=== PATIENT | male | born 1970 ===

== ENCOUNTER 2017-01-02 11:45 | Emergency (ER) | payer MEDICAID ==
--- NOTE | 2017-01-02 14:22 | ED PDOC ---
Lower Extremity Pain/Injury Time Seen by Provider: 01/02/17 12:02 Chief Complaint (Nursing): Lower Extremity Problem/Injury History Per: Patient (Bilat lower ext pain assoc with SOB. Pt has h/o DVT and PE on Coumadin. Denies chest pain or cough.) Onset/Duration Of Symptoms: Days (2) Current Symptoms Are (Timing): Still Present Severity: Mild Pain Scale Rating Of: 2 - Risk Factors DVT Risk Factors: Pos: History Of DVT, History Of PE Past Medical History Vital Signs: Last Vital Signs Temp 97 F L 01/02/17 11:58 Pulse 81 01/02/17 11:58 Resp 18 01/02/17 11:58 BP 137/3 L 01/02/17 11:58 Pulse Ox 98 01/02/17 11:58 - Medical History PMH: Deep Vein Thrombosis (On Coumadin), Pulmonary Embolism (On Coumadin) - Family History Family History: States: Unknown Family Hx - Home Medications Home Medications: Ambulatory Orders Medication Instructions Recorded Baclofen [Lioresal] 10 mg PO HS 02/05/16 Methadone [Methadone HCl] 35 mg PO DAILY 02/05/16 Naproxen [Naprosyn] 500 mg PO BID PRN #14 tablet 02/05/16 Omeprazole 40 mg PO DAILY 02/05/16 Ondansetron ODT [Zofran ODT] 4 mg PO Q8 PRN #20 odt 02/05/16 Warfarin [Coumadin] 10 mg PO 1800 02/05/16 - Allergies Allergies/Adverse Reactions: Allergies Allergy/AdvReac Type Severity Reaction Status Date / Time No Known Allergies Allergy Verified 01/02/17 11:58 Review of Systems ROS Statement: Except As Marked, All Systems Reviewed And Found Negative Respiratory: Positive for: Shortness of Breath Musculoskeletal: Positive for: Leg Pain Physical Exam - Reviewed Nursing Documentation Reviewed: Yes Vital Signs Reviewed: Yes - Physical Exam Appears: Positive for: Non-toxic, No Acute Distress Head Exam: Positive for: ATRAUMATIC, NORMAL INSPECTION, NORMOCEPHALIC Skin: Positive for: Normal Color, Warm, DRY Eye Exam: Positive for: EOMI, Normal appearance, PERRL ENT: Positive for: Normal ENT Inspection Neck: Positive for: Normal, Painless ROM Cardiovascular/Chest: Positive for: Regular Rate, Rhythm Respiratory: Positive for: CNT, Normal Breath Sounds Gastrointestinal/Abdominal: Positive for: Normal Exam, Bowel Sounds, Soft Back: Positive for: Normal Inspection Extremity: Positive for: Normal ROM, Calf Tenderness (Bilat R>L) Neurologic/Psych: Positive for: Alert, Oriented - Laboratory Results Result Diagrams: 01/02/17 14:28 01/02/17 14:28 - ECG O2 Sat by Pulse Oximetry: 98 Disposition - Clinical Impression Clinical Impression: Chronic deep vein thrombosis (DVT) of both lower extremities - Patient ED Disposition Is Patient to be Admitted: Transfer of Care - Disposition Referrals: mE Salgado MD [Family Provider] - Disposition: Routine/Home Disposition Time: 17:00 Condition: FAIR Patient Signed Over To: Elvira Hernandez
--- NOTE | 2017-01-02 15:04 | RAD ---
HISTORY: sob COMPARISON: Chest x-ray performed 03/19/15 TECHNIQUE: Chest PA and lateral FINDINGS: Examination limited by habitus. LUNGS: Minimal interstitial prominence and peribronchiolar cuffing centrally. No focal consolidation. Please note that chest x-ray has limited sensitivity for the detection of pulmonary masses. PLEURA: No significant pleural effusion identified. No definite pneumothorax . CARDIOVASCULAR: The cardiomediastinal silhouette appears within normal limits of size. OSSEOUS STRUCTURES: Curvature of the lumbar spine convex to the right. Degenerative changes of the spine. VISUALIZED UPPER ABDOMEN: Unremarkable. OTHER FINDINGS: None. IMPRESSION: Findings consistent with mild reactive or inflammatory airway disease.
--- NOTE | 2017-01-02 15:49 | US ---
Bilateral lower extremity ultrasound. Indication: Rule out DVT Technique: Duplex ultrasound evaluation of the bilateral lower extremities Comparison: Bilateral lower extremity ultrasound performed 03/19/15 Findings: Bilateral chronic nonocclusive thrombus evident within bilateral popliteal veins. No thrombus within the bilateral common femoral or femoral veins. The posterior tibial veins appear patent bilaterally. Impression: Bilateral nonocclusive chronic appearing thrombus within bilateral popliteal veins.
[2017-01-02 16:02] LABS: BASO # 0.1 K/uL (0.0-0.2); BASO % 0.6 % (0.0-2.0); EOS # 0.1 K/uL (0.0-0.7); EOS % 1.1 % (0.0-4.0); HEMATOCRIT 36.5 % (35.0-51.0); LYMPH # 2.2 K/uL (1.0-4.3); LYMPH % 25.4 % (20.0-40.0); MEAN CELL VOLUME 89.7 fl (80.0-94.0); MEAN CORPUSCULAR HEMOGLOBIN 30.6 pg (27.0-31.0); MEAN CORPUSCULAR HGB CONC 34.1 g/dL (33.0-37.0); MEAN PLATELET VOLUME 8.4 fl (7.2-11.7); MONO # 0.6 K/uL (0.0-0.8); MONO % 7.4 % (0.0-10.0); NEUT # 5.6 K/uL (1.8-7.0); NEUT % 65.5 % (50.0-75.0); NRBC % 0.1 % (0.0-0.0); RED CELL DISTRIBUTION WIDTH 13.5 % (11.5-14.5); WHITE BLOOD COUNT 8.5 K/uL (4.8-10.8)
[2017-01-02 16:13] LABS: ALB/GLOB RATIO 1.2 (1.0-2.1); ALKALINE PHOSPHATASE 68 U/L (38-126); ALT/SGPT 27 U/L (21-72); AST/SGOT 25 U/L (17-59); BILIRUBIN,TOTAL 0.5 mg/dl (0.2-1.3); BLOOD UREA NITROGEN 13 mg/dl (9-20); CARBON DIOXIDE 27 mmol/L (22-30); CHLORIDE 104 mmol/L (98-107); GFR AFRICAN-AMERICAN > 60; GLUCOSE,RANDOM 83 mg/dL (75-110); POTASSIUM 4.4 MMOL/L (3.6-5.0); SODIUM 143 mmol/l (132-148); TOTAL PROTEIN 7.3 G/DL (6.3-8.2)
[2017-01-02 16:43] VITALS: BP 125/87; PULSE 56; RESP 16; TEMP 98.3
[2017-01-02] MEDS ORDERED: Iodixanol 320 MG/ML 100 ML BOTTLE IV ONE (16:44)
[2017-01-02] MEDS ORDERED: Sodium Chloride 0.9% 50 ML IV ONE (16:44)
--- NOTE | 2017-01-02 17:42 | ED PDOC ---
- Laboratory Results Result Diagrams: 01/02/17 14:28 01/02/17 14:28 - ECG O2 Sat by Pulse Oximetry: 97 (RA) Pulse Ox Interpretation: Normal Medical Decision Making Medical Decision Makin01/02/17 17:41 Pt signed out by Dr. Gutierrez pending CT. 1929 Pt INR subtherapeutic. Pt states he discontinued Coumadin (10 mg) on 12/26/16 for dental procedure scheduled for 01/06/17 and was planning on restarting immediately afterwards. 1951 case was discussed with Dr. Salgado who states patient should be admitted. 1952 Case discussed with patient, explained Dr. Salgado would like to admit him however patient states he does not wish to stay in the hospital because he needs to go to work. I explained that patient has chronic findings, subtherapeutic INR and shortness of breath. Strongly recommended admission. Explained risks of leaving against medical advice, including injury or . Patient still wishes to leave. Patient instructed to follow up with Dr. Salgado tomorrow. Return for worsening of symptoms or as soon as possible. Disposition - Clinical Impression Clinical Impression: Chronic deep vein thrombosis (DVT) of both lower extremities - POA Present On Arrival: None - Disposition Referrals: Em Salgado MD [Family Provider] - Disposition: AGAINST MEDICAL ADVICE Disposition Time: 19:55 Condition: FAIR Additional Comments - Additional Comments Additional Comments: Scribe Attestation: Documented by Connor Tavera acting as a scribe for Judie Hernandez MD. Scribe Attestation: All medical record entries made by the Scribe were at my direction and personally dictated by me. I have reviewed the chart and agree that the record accurately reflects my personal performance of the history, physical exam, medical decision making, and the department course for this patient. I have also personally directed, reviewed, and agree with the discharge instructions and disposition. Against Medical Advice - AMA Patient Left Against Medical Advice: The patient declines admission to the hospital and wishes to leave the Emergency Department. This action is against my medical advice. This decision was made with informed refusal. The patient was told that admission to the hospital is necessary. Explanation of the reasons why were discussed. The risks of leaving were explained to the patient and include, but are not limited to, worsening of known or currently unknown conditions, permanent disability and from undiagnosed or untreated conditions. The patient has the capacity to make this informed decision and understands my explanation of the current medical problem and risks of leaving. The patient voluntarily accepts these risks and signed an AMA form documenting our conversation. The patient was given the opportunity to ask questions and reconsider. The patient was encouraged to return to the Emergency Department at any time for further care.
--- NOTE | 2017-01-02 17:48 | CT ---
CT chest with IV contrast Indication: Rule out PE, shortness of breath Technique: Contiguous axial images were obtained through the chest with intravenous contrast enhancement. Sagittal and coronal reconstructions were generated and reviewed. This CT exam was performed using 1 or more of the falling dose reduction techniques: Automated exposure control, adjustment of the MAA and/or kV according to patient size, and/or use of iterative reconstruction technique. IV Contrast: 95 mL Visipaque Radiation dose (DLP): 347.84 MGy-cm. Comparison: Chest x-ray performed 01/02/17 Findings: Visualized portions of the inferior thyroid gland appear unremarkable. The mediastinal and hilar vascular structures appear within normal limits. The heart appears within normal limits of size. No large central or segmental pulmonary embolus evident. No focal consolidation. No pleural effusion. No pneumothorax. No suspicious pulmonary nodules measuring greater than 5 mm. Small hiatal hernia/distal esophageal wall thickening. Limited visualization of the upper abdomen appears grossly unremarkable. Multilevel degenerative changes. Curvature of the thoracic spine convex to the right. Impression: No acute findings.
--- NOTE | 2017-01-03 08:29 | CARD ---
APPROVED REPORT EKG Measurement Heart [id number] <Conclusion> Sinus bradycardia Nonspecific T wave abnormality Abnormal ECG
[2017-01-03 09:48] VITALS: O2SAT 98
== END 2017-01-02 20:45 | disposition left against medical advice (07) ==
LOC: H.ER 11:45
DX: M79.604 Pain in right leg (principal); R06.02 Shortness of breath; Z86.718 Personal history of other venous thrombosis and embolism; Z86.711 Personal history of pulmonary embolism; Z79.01 Long term (current) use of anticoagulants

== ENCOUNTER 2017-03-24 09:37 | Emergency (ER) | payer MEDICAID ==
[2017-03-24 09:41] VITALS: BMI 38.4
[2017-03-24 09:44] VITALS: TEMP 98.6; O2SAT 98
--- NOTE | 2017-03-24 10:27 | ED PDOC ---
Lower Extremity Pain/Injury Time Seen by Provider: 03/24/17 10:05 Chief Complaint (Nursing): Lower Extremity Problem/Injury Chief Complaint (Provider): left leg pain History Per: Patient Additional Complaint(s): 46-year-old male with history of DVT presents to emergency department with left calf pain and swelling for 4 days. Patient denies any recent travel. No associated chest pain, shortness of breath or dyspnea on exertion. He states that he is supposed to be on Coumadin but has not taken his medication for 2 months. He states he has been unable to follow up with his primary doctor. He rates leg pain as 5/10. He has not taken any meds for pain relief. Past Medical History Reviewed: Historical Data, Nursing Documentation, Vital Signs Vital Signs: Last Vital Signs Temp 98.6 F 03/24/17 10:00 Pulse 73 03/24/17 10:00 Resp 18 03/24/17 10:00 BP 134/71 03/24/17 10:00 Pulse Ox 98 03/24/17 10:00 - Medical History PMH: Deep Vein Thrombosis, Pulmonary Embolism - Family History Family History: States: No Known Family Hx - Living Arrangements Living Arrangements: With Family - Home Medications Home Medications: Ambulatory Orders Medication Instructions Recorded Baclofen [Lioresal] 10 mg PO HS 02/05/16 Methadone [Methadone HCl] 35 mg PO DAILY 02/05/16 Naproxen [Naprosyn] 500 mg PO BID PRN #14 tablet 02/05/16 Omeprazole 40 mg PO DAILY 02/05/16 Ondansetron ODT [Zofran ODT] 4 mg PO Q8 PRN #20 odt 02/05/16 Warfarin [Coumadin] 10 mg PO 1800 02/05/16 - Allergies Allergies/Adverse Reactions: Allergies Allergy/AdvReac Type Severity Reaction Status Date / Time No Known Allergies Allergy Verified 03/24/17 10:00 Wells Criteria for PE - Wells Criteria for Pulmonary Embolism Clinical Signs and Symptoms of DVT: Yes P.E is #1 Diagnosis, or Equally Likely: No Heart Rate >100: No Immobilization at least 3 days;Surgery previous 4 weeks: No Previous, objectively diagnosed PE or DVT: No Hemoptysis: No Malignancy w/treatment within 6 months, or palliative: No Total Score: 3 Review of Systems ROS Statement: Except As Marked, All Systems Reviewed And Found Negative Constitutional: Negative for: Fever Cardiovascular: Negative for: Chest Pain Respiratory: Negative for: Shortness of Breath, SOB with Exertion Musculoskeletal: Positive for: Leg Pain (left) Physical Exam - Reviewed Nursing Documentation Reviewed: Yes Vital Signs Reviewed: Yes - Physical Exam Appears: Positive for: Well, Non-toxic, No Acute Distress Skin: Negative for: Rash Eye Exam: Positive for: Normal appearance Cardiovascular/Chest: Positive for: Regular Rate, Rhythm Respiratory: Positive for: Normal Breath Sounds. Negative for: Respiratory Distress Extremity: Positive for: Normal ROM (left hip, knee, ankle), Calf Tenderness ( left), Capillary Refill (<2 seconds). Negative for: Deformity Neurologic/Psych: Positive for: Alert, Oriented, Gait (steady) - ECG O2 Sat by Pulse Oximetry: 98 Pulse Ox Interpretation: Normal - Other Rad Doppler left leg X-Ray: Read By Radiologist X-Ray Interpretation: see below Medical Decision Making Medical Decision Makin46 year old with left leg pain Plan: Doppler left leg Doppler is negative for DVT. Advised tylenol for pain. Patient was instructed to follow up with [facility] to get back on coumadin. Disposition - Clinical Impression Clinical Impression: Leg pain - Patient ED Disposition Is Patient to be Admitted: No Counseled Patient/Family Regarding: Studies Performed, Diagnosis, Need For Followup - Disposition Referrals: Em Salgado MD [Family Provider] - Disposition: Routine/Home Disposition Time: 12:23 Condition: STABLE Additional Instructions: Tylenol for pain as needed. Follow up as soon as possible with primary care doctor. Instructions: Leg Pain (ED)
--- NOTE | 2017-03-24 11:51 | US ---
HISTORY: leg pain, history of DVT . PRIORS: None. FINDINGS: 2-D, color and duplex Doppler analysis of the lower extremity venous circulation using routine protocol from the femoral veins through the popliteal veins. Venous compressibility: Normal. Flow and augmentation patterns: Normal. Visualized veins upper third of calf: Normal. Valadez cyst: None. IMPRESSION: No evidence for DVT in left lower extremity.
[2017-03-24 12:47] VITALS: BP 136/74; PULSE 72; RESP 20
== END 2017-03-24 12:46 | disposition home or self-care (01) ==
LOC: H.ER 09:37
DX: M79.605 Pain in left leg (principal); Z86.718 Personal history of other venous thrombosis and embolism